=== PATIENT | female | born 1985 | race Caucasian/White ===

== ENCOUNTER 2024-07-04 12:47 | Emergency (ER) | payer MEDICAID ==
[~2024-07-04] VITALS: Ht 167.6 cm; Wt 134.8 kg
[2024-07-04] MEDS ORDERED: IBUP-1984 PO (14:47)
[2024-07-04 14:54] VITALS: BP 126/88; PULSE 80; RESP 16; TEMP 97.7; O2SAT 99
== END 2024-07-04 14:55 | disposition home or self-care (01) ==
LOC: ER 12:47
DX: S93.401A Sprain of unspecified ligament of right ankle, initial encounter (principal); Z88.8 Allergy status to other drugs, medicaments and biological substances; Z79.1 Long term (current) use of non-steroidal anti-inflammatories (NSAID); W19.XXXA Unspecified fall, initial encounter; Y93.89 Activity, other specified; Y92.89 Other specified places as the place of occurrence of the external cause; Y99.8 Other external cause status
CPT/HCPCS: 73610; 99284; L4360

== ENCOUNTER 2024-10-22 13:55 | Emergency (ER) | payer MEDICAID ==
[~2024-10-22] VITALS: Ht 170.2 cm; Wt 130.9 kg
[2024-10-22 14:11] VITALS: BP 169/115; PULSE 109; RESP 18; TEMP 99.1; O2SAT 98
[2024-10-22] MEDS ORDERED: FLUO-330 PO ×2 (14:49→14:50)
== END 2024-10-22 15:00 | disposition home or self-care (01) ==
LOC: ER 13:56
DX: Z76.0 Encounter for issue of repeat prescription (principal); F32.A Depression, unspecified
CPT/HCPCS: 99281